=== PATIENT | female | born 2000 | race Caucasian/White ===

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

== ENCOUNTER 2022-05-16 17:02 | Emergency (ER) | payer MEDICAID, SELFPAY ==
[2022-05-16 17:05] VITALS: BP 123/91; PULSE 94; RESP 16; TEMP 36.8; O2SAT 98
--- NOTE | 2022-05-16 18:56 | W.ED.GENAD ---
Discharge Plan Disposition Patient Disposition: Home Condition: Stable Discharge Details Clinical Impression: Discharge from left nipple Primary Care Provider: Carmen Fowler ED Provider: Evelyne Rubin Home Meds and New Rx's Prescriptions: No Action Nexplanon 68 mg Implant SUBDERMAL Discharge Instructions Instructions: Nipple Discharge (ED) Additional Instructions: Some nipple discharge can be normal, or can be hormonal. Please follow-up with your primary care provider to discuss possible mammogram if they feel this is warranted. I do not see any evidence of infection at this time. test is negative. Follow up with primary care provider in 3-5 days. Return to ED sooner if any worsening or concerns. Increase oral fluids. Please take Tylenol or Ibuprofen with food every 4-6 hours as needed for pain and swelling. Referrals: Carmen Fowler, [Primary Care Provider] - Return if symptoms worsen Medical Decision Making 22-year-old female presents with report of left nipple discharge after removing some nipple piercings approximately 2 months ago. She reports that she has had the piercings for approximately 4 years. She reports that over the last 2 to 3 days the discharge changed to more liquidy and bloody and yellow. She denies any breast erythema, redness, induration or pain she denies noting any lumps or any other associated symptoms. She denies any possibility of she does have the Nexplanon implant however she does report some vaginal bleeding this month which is the first time in the last 6 months since having the Nexplanon. On further questioning she does note that her mom did have a breast lumpectomy when she was a younger child she is unsure if it was benign or malignant at that time. Will dip urine for test. Patient reports that she did have a menstrual period earlier this month has not had 1 in the last 6 months. I did discuss follow-up care and to discuss getting a mammogram with her PCP due to her mom's history of possible lumpectomy. I did discuss that sometimes nipple discharge can be hormonal I do not think that patient needs to be on antibiotics at this time there is no obvious clinical evidence for infection at this time. I did discuss this plan with her she verbalizes understanding and is in agreement with the plan. Urine is negative. Patient discharged with follow-up instructions. This text was generated using Nuance dictation system, please disregard any oddities of phrase or misspellings. HPI General Mode of arrival: ambulatory. Date/Time Provider Initiated Documentation: 05/16/22 17:14. Limitations to Documentation: no limitations. Information obtained by: patient, RN notes reviewed and old records reviewed. HPI Narrative: 22-year-old female presents to the ER with chief complaint of discharge from her left nipple which she noticed a few days ago. She reports intermittent discharge over the last couple of months after removing some nipple piercings. She describes it as white cottage cheeselike substance. However 2 days ago it began more liquidy yellow with blood-tinged. No surrounding induration no erythema no signs of infection no lumps palpated on my exam. She denies any fever chills or any other associated symptoms. She does report that she remembers her mother did have a lump removed when she was a small child she is unsure if it is cancerous or not. She goes to school in [place]. Past medical history includes obesity, she does have a Nexplanon control implant. Related Data Home Medications Medication Instructions Recorded Confirmed etonogestrel 68 mg subdermal subdermal 05/16/22 implant (Nexplanon) Allergies Allergy/AdvReac Type Severity Reaction Status Date / Time No Known Allergies Allergy Unverified 05/16/22 17:07 General Stated Complaint: Cellulitis FALGUNI: 4 Review of Systems All systems reviewed & are unremarkable except as noted in HPI and below Constitutional Constitutional: Reports system reviewed and no additional complaints, except as documented, Denies body ache(s), Denies chills, Denies fatigue, Denies fever(s) and Denies headache(s) ENT Ears, Nose, Mouth, and Throat: Reports system reviewed and no additional complaints, except as documented and Denies headache(s) Cardiovascular Cardiovascular: Denies chest pain Integumentary/Breasts Skin/Breast: Reports as per HPI, Denies breast swelling, Reports breast skin changes (Nipple discharge left breast), Denies breast pain, Denies breast mass and Denies change in breast shape Neurologic Neurologic: Denies headache(s) Endocrine Endocrine: Denies fatigue PFSH All Active Problems (Updated 05/16/22 @ 19:18 by Evelyne Rubin NP) Discharge from left nipple (Acute) Avascular necrosis of bone (Acute 09/22/12) BMI,pediatric 85% - <95% (Acute 11/09/11) Concussion (Acute 01/18/13) Body mass index (BMI) greater than 95th percentile (Acute 11/09/11) Acquired dysplasia of right hip (Acute 01/10/16) being followed by [facility] ortho. S/p surgical correction. Last visit 08/2017. Follow up in 1 year. Chronic daily headache (Acute 05/15/14) Daytime somnolence (Acute 05/15/14) Dysmenorrhea (Acute 01/13/17) Patient advised by orthopedic surgeon [facility] to not have a subdermal implant secondary to concern for infection. Mirena IUD planned. 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 Right hip pain Secondary to osteoarthritis. Patient is scheduled for right hip surgery at [facility] 01/2017 Serous otitis media chronic Surgical History Tonsillectomy and adenoidectomy 2012 Tooth extraction 4 wisdom teeth extraction Family History Other Hypertensive disorder, systemic arterial mat uncle Personal history of malignant neoplasm liver in Mgreat GF Mental disorder mat uncle with schizophrenia/depression/mild retardation Asthma mat uncle and other Brother Attention deficit hyperactivity disorder Grandfather Heart disease PGF- was 3rd heart transplant in [place] Mental disorder alcoholism Grandmother Personal history of malignant neoplasm Vyas's esophagitis Mother Hypertensive disorder, systemic arterial Mental disorder depression/anxiety/panic attacks Psoriasis with arthropathy Father Mental disorder alcoholism Other Mental disorder pat aunt with alcoholism Grandfather Mental disorder alcoholism Other Diabetes Social History (Updated 03/03/22 @ 10:26 by Arianna Duarte) Smoking/Tobacco Use Status: Current every day Tobacco Type: e-cigarettes Tobacco: How many years used: 1 Quit status: not considering quitting Smoking risk assessment performed?: Yes Alcohol Intake: current Alcohol Intake frequency: a few times a month Drug use: Never Substance use type: does not use Adopted: No Caregiver/Support person: No Foster care: No Household members: family Housing: house Number of Children: 0 Communication Needs: None Education Level: college Details: Bachelor's Degree Do you need help understanding health information?: Often current occupation: Kitchen Staff Pets and animals: Yes Pets and animals: cat(s), dog(s) and fish Sexually active: Yes Do you think of yourself as: straight/heterosexual Current gender identity: female What is your relationship status?: never How often do you talk on the phone with friends or family?: three or more times per week How often do you get together with friends or relatives?: once per week Panel score (0-1 are the most socially isolated patients): 1 What type of physical activity do you participate in: walking and running Duration: 60-90 minutes/day Frequency: 5-6 times per week Erlinda/Episcopalian: None Special erlinda needs: No Seatbelt use: always Helmet use: No Drive intox or ride w/intox bulk delivery driver: No Do you feel safe at home: Yes Do you feel safe in your relationship?: Yes Exam Const General: cooperative, healthy appearing, comfortable, well developed and well groomed Nutritional Appearance: well nourished and overweight Orientation: alert, awake and oriented x3 Neck Neck: full ROM and no lymphadenopathy Chest Chest: normal inspection of the chest, normal palpation of entire chest wall, no masses, no tenderness and No rash Breast inspection: normal inspection of the breasts and normal inspection of the axillae Breast palpation: normal palpation of the breasts and normal palpation of the axillae Other: No induration erythema or palpable mass no evidence of discharge, unable to express any discharge from the nipples at this time. Resp Effort & Inspection: normal respiratory effort and able to speak in complete sentences Auscultation: clear to auscultation bilaterally Cardio Rate: regular rate Rhythm: regular rhythm Heart Sounds: S1 normal, S2 normal, no click, no gallops and no murmurs Course Vital Signs Vital signs: Vital Signs Temperature 36.8 C 05/16/22 17:05 Pulse 94 H 05/16/22 17:05 Respiratory Rate 16 05/16/22 17:05 Blood Pressure 123/91 H 05/16/22 17:05 Pulse Oximetry 98 05/16/22 17:05 Temperature 36.8 C 05/16/22 17:05 Temperature Source Oral 05/16/22 17:05 Pulse 94 H 05/16/22 17:05 Respiratory Rate 16 05/16/22 17:05 Respiratory Effort 05/16/22 17:09 Blood Pressure 123/91 H 05/16/22 17:05 Blood Pressure Position Sitting 05/16/22 17:05 Pulse Oximetry 98 05/16/22 17:05 Oxygen Delivery Method Room Air 05/16/22 17:05 Oxygen Flow Rate 0 05/16/22 17:05 Pain Level 0 05/16/22 17:05
== END 2022-05-16 19:27 | disposition home or self-care (01) ==
PROVIDERS: Emergency Provider Registered Nurse Emergency; PCP Student in an Organized Health Care Education/Training Program
DX: N64.52 Nipple discharge (principal)
CPT/HCPCS: 81025; 99282

== ENCOUNTER 2023-02-24 15:20 | Emergency (ER) | payer SELFPAY ==
[2023-02-24 15:24] VITALS: BP 163/94; PULSE 100; RESP 18; TEMP 36.3; O2SAT 99
--- NOTE | 2023-02-24 15:58 | ED.GENADUL_ITS ---
Discharge Plan Disposition Patient Disposition: Home Discharge Details Clinical Impression: Pitted keratolysis Primary Care Provider: None,None ED Provider: Grayson Solano Home Meds and New Rx's Prescriptions: New erythromycin-benzoyl peroxide 3-5 % gel 1 applic topical BID MDD n/a 10 Days Qty: 23.3 0RF Continued Nexplanon 68 mg Implant See Rx Instructions SUBDERMAL .COMPLEX Rx Instructions: subdermally; Discharge Instructions Instructions: Erythromycin (On the skin), Athlete's Foot (ED) Additional Instructions: You were seen in the emergency department for your macular skin rash to the soles of your feet, this is possibly an antifungal infection and you should try to obtain enis-dvq-gxgzqlw antifungal creams like Lamisil or Lotrimin, look for the active ingredients of butenafine or terbinafine as these are fungicidal as we discussed. There is a possibility that this is pended around lysis and I have sent topical erythromycin to be placed on the skin twice per day for 10 days. If none of these topical treatments are responding to therapy its possible that you have mosaic plantars warts and would need to see podiatry. Please return to the emergency department for any severe increase in redness or pain to the feet with drainage of pus from the areas, any progressing numbness or extreme pain with coldness to touch of the feet. Referrals: Opal Harding DPM [[facility] STAFF PHYSICIAN] - (Possible mosaic warts) Medical Decision Making 22-year-old female has had repeated macular pitted lesions intermittently for months to the soles of her feet, she does use communal showers at college campus. She has attempted treatment with benzyl peroxide without relief and has noticed exacerbated lesions with peeling skin since being in footwear for prolonged time with abundant foot sweating. She questions whether this is pitted keratolysis. I did advise her to trial topical antifungal creams and prescribed erythromycin topical 3% ointment to apply twice per day for 10 days- there is a possibility this could be mosaic pattern warts and I did recommend her to follow-up with podiatry for failure to improve on a routine basis. Acute uncomplicated illness without systemic symptoms. Differential Diagnosis Differential Diagnosis: Mosaic Warts, Pitted Keratolysis, Superficial Fungal Infection Medical Records Medical records reviewed: Yes I reviewed the patient's medical records. HPI General Date/Time Provider Initiated Documentation: 02/24/23 15:22 . HPI Narrative: 22-year-old female presents by POV with recurrent skin problem on the soles of her feet, she equates this with possible exposures over the past year with communal showers at her college campus. She has tried topical benzoyl peroxide as she believes this is pitted keratolysis. She reports it is exacerbated by spending more time in shoes which causes her feet to sweat, it is not a painful condition. Patient otherwise healthy. Related Data Home Medications Medication Instructions Recorded Confirmed etonogestrel 68 mg subdermal See Rx Instructions subdermal 05/16/22 02/24/23 implant (Nexplanon) .COMPLEX erythromycin-benzoyl peroxide 3 1 applic topical BID pitted 02/24/23 %-5 % topical gel keratolysis 10 days #23.3 grams Previous Rx's Medication Instructions Recorded erythromycin-benzoyl peroxide 3 1 applic topical BID pitted 02/24/23 %-5 % topical gel keratolysis 10 days #23.3 grams Allergies Allergy/AdvReac Type Severity Reaction Status Date / Time No Known Allergies Allergy Unverified 02/24/23 15:28 General Stated Complaint: Recheck FALGUNI: 4 Review of Systems All systems reviewed & are unremarkable except as noted in HPI and below PFSH All Active Problems (Updated 02/24/23 @ 16:11 by PAPO Galo) Pitted keratolysis (Acute) Avascular necrosis of bone (Acute 09/22/12) BMI,pediatric 85% - <95% (Acute 11/09/11) Concussion (Acute 01/18/13) Body mass index (BMI) greater than 95th percentile (Acute 11/09/11) Acquired dysplasia of right hip (Acute 01/10/16) being followed by [facility] ortho. S/p surgical correction. Last visit 08/2017. Follow up in 1 year. Chronic daily headache (Acute 05/15/14) Daytime somnolence (Acute 05/15/14) Dysmenorrhea (Acute 01/13/17) Patient advised by orthopedic surgeon [facility] to not have a subdermal implant secondary to concern for infection. Mirena IUD planned. 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 Patient is scheduled for right hip surgery at [facility] 01/2017 Dysmenorrhea in adolescent Has decided on Mirena IUD for menstrual cycle control. Serous otitis media chronic Surgical History Tonsillectomy and adenoidectomy 2012 Tooth extraction 4 wisdom teeth extraction Family History Other Hypertensive disorder, systemic arterial mat uncle Personal history of malignant neoplasm liver in reat GF Mental disorder mat uncle with schizophrenia/depression/mild retardation Asthma mat uncle and other Brother Attention deficit hyperactivity disorder Grandfather Heart disease PGF- was 3rd heart transplant in [place] Mental disorder alcoholism Grandmother Personal history of malignant neoplasm Vyas's esophagitis Mother Hypertensive disorder, systemic arterial Mental disorder depression/anxiety/panic attacks Psoriasis with arthropathy Father Mental disorder alcoholism Other Mental disorder pat aunt with alcoholism Grandfather Mental disorder alcoholism Other Diabetes Social History (Updated 03/03/22 @ 10:26 by Arianna Duarte) Smoking/Tobacco Use Status: Current every day Tobacco Type: e-cigarettes Tobacco: How many years used: 1 Quit status: not considering quitting Smoking risk assessment performed?: Yes Alcohol Intake: current Alcohol Intake frequency: a few times a month Drug use: Never Substance use type: does not use Adopted: No Caregiver/Support person: No Foster care: No Household members: family Housing: house Number of Children: 0 Communication Needs: None Education Level: college Details: Bachelor's Degree Do you need help understanding health information?: Often current occupation: Kitchen Staff Pets and animals: Yes Pets and animals: cat(s), dog(s) and fish Sexually active: Yes Do you think of yourself as: straight/heterosexual Current gender identity: female What is your relationship status?: never How often do you talk on the phone with friends or family?: three or more times per week How often do you get together with friends or relatives?: once per week Panel score (0-1 are the most socially isolated patients): 1 What type of physical activity do you participate in: walking and running Duration: 60-90 minutes/day Frequency: 5-6 times per week Erlinda/Restorationism: None Special erlinda needs: No Seatbelt use: always Helmet use: No Drive intox or ride w/intox cdl driver: No Do you feel safe at home: Yes Do you feel safe in your relationship?: Yes Exam Const General: cooperative, healthy appearing and no acute distress HENMT Head: normocephalic and atraumatic Resp Effort & Inspection: normal respiratory effort and able to speak in complete sentences Cardio Jugular venous pressure: no JVD Rate: regular rate Pulses: radial pulses present Skin Other: Bilateral dendritic pattern and macular pitted lesions without central pigmented areas consistent with warts, there is no erythema or drainage of pus, she had recently performed a foot peeling treatment. No dorsal involvement, pedal pulses intact with brisk capillary refill Course Vital Signs Vital signs: Vital Signs Temperature 36.3 C L 02/24/23 15:24 Pulse 100 H 02/24/23 15:24 Respiratory Rate 18 02/24/23 15:24 Blood Pressure 163/94 H 02/24/23 15:24 Pulse Oximetry 99 02/24/23 15:24 Temperature 36.3 C L 02/24/23 15:24 Temperature Source Oral 02/24/23 15:24 Pulse 100 H 02/24/23 15:24 Respiratory Rate 18 02/24/23 15:24 Respiratory Effort Normal 02/24/23 15:29 Blood Pressure 163/94 H 02/24/23 15:24 Blood Pressure Position Sitting 02/24/23 15:24 Pulse Oximetry 99 02/24/23 15:24 Oxygen Delivery Method Room Air 02/24/23 15:24 Oxygen Flow Rate 0 02/24/23 15:24
[2023-02-24 16:36] VITALS: BP 146/92; PULSE 88; RESP 22; O2SAT 97
== END 2023-02-24 16:37 | disposition home or self-care (01) ==
PROVIDERS: Emergency Provider Physician Assistant
DX: L08.89 Other specified local infections of the skin and subcutaneous tissue
CPT/HCPCS: 99282; 99283

== ENCOUNTER 2023-03-09 18:07 | Emergency (ER) | payer SELFPAY ==
[2023-03-09 18:18] VITALS: BP 151/106; PULSE 94; RESP 18; TEMP 36.8; O2SAT 99
[2023-03-09 18:32] LABS: Bilirubin Negative (Negative); Blood Large (Negative); Clarity Turbid (Clear); Glucose Negative (Negative); Ketones Negative (Negative); Leukocyte Esterase Small (Negative); Nitrite Negative (Negative)
[2023-03-09 18:39] LABS: C & S Indicated? Yes; RBC >50 HPF (0-2)
--- NOTE | 2023-03-09 18:46 | W.ED.GENAD ---
Discharge Plan Disposition Patient Disposition: Home Condition: Stable Discharge Details Clinical Impression: UTI (urinary tract infection) Primary Care Provider: None,None ED Provider: Evelyne Rubin Home Meds and New Rx's Prescriptions: New cephalexin 500 mg tablet 500 mg PO BID 5 Days Qty: 10 0RF No Action Nexplanon 68 mg Implant See Rx Instructions SUBDERMAL .COMPLEX Rx Instructions: subdermally; Discharge Instructions Instructions: Urinary Tract Infection in Women (ED) Additional Instructions: Please take the antibiotic with yogurt or a probiotic. Please take the Pyridium as directed. Follow up with primary care provider in 3-5 days. Return to ED sooner if any worsening or concerns. Increase oral fluids. Please take Tylenol or Ibuprofen with food every 4-6 hours as needed for pain and swelling. Medical Decision Making 23 year old female presents to the ED with dysuria, urgency and hesitancy that began today. She reports that she recently had intercourse and she may have experienced some vaginal trauma. She also reports that she is about to start her period which could also be why she is peeing blood. She denies any abdominal pain back pain fever chills nausea vomiting diarrhea or any other associated symptoms. She does have a Nexplanon. Urinalysis shows large blood, small leukocytes greater than 50 RBCs culture pending at this time. Negative nitrites. Discussed options with patient she would like to start antibiotics right away we will give cephalexin 500 mg and Pyridium. This text was generated using [employer] dictation system, please disregard any oddities of phrase or misspellings. Lab Data Lab results reviewed: Yes I reviewed the patient's lab results. Labs: 03/09/23 18:20 Urine - Reflex from Ua Urine Culture - Pending Laboratory Tests Range/Units 03/09/23 18:20 Urine Color (Yellow) [place] Urine Clarity (Clear) Turbid Urine pH (5-8) 7.0 Ur Specific [place] (1.005-1.025) 1.020 Urine Protein (Negative) mg/dL 100 H Urine Ketones (Negative) mg/dL Negative Urine Blood (Negative) Large H Urine Nitrite (Negative) Negative Urine Bilirubin (Negative) Negative Urine Urobilinogen (Up to 0.2) mg/dL 1.0 H Ur Leukocyte Esterase (Negative) Small H Urine RBC (0-2) HPF >50 H Urine WBC Not Applicable Ur Epithelial Cells Not Applicable Urine Crystals Not Applicable Urine Bacteria Not Applicable Urine Mucus Not Applicable Ur Culture Indicated? Yes Urine Glucose (Negative) mg/dL Negative HPI General Mode of arrival: ambulatory. Date/Time Provider Initiated Documentation: 03/09/23 18:11. Limitations to Documentation: no limitations. Information obtained by: patient, RN notes reviewed and old records reviewed. HPI Narrative: 23 year old female presents to the ED with dysuria, urgency and hesitancy that began today. She reports that she recently had intercourse and she may have experienced some vaginal trauma. She also reports that she is about to start her period which could also be why she is peeing blood. She denies any abdominal pain back pain fever chills nausea vomiting diarrhea or any other associated symptoms. She does have a Nexplanon. Related Data Home Medications Medication Instructions Recorded Confirmed etonogestrel 68 mg subdermal See Rx Instructions subdermal 05/16/22 03/09/23 implant (Nexplanon) .COMPLEX cephalexin 500 mg tablet 500 mg PO BID 5 days #10 tabs 03/09/23 Previous Rx's Medication Instructions Recorded cephalexin 500 mg tablet 500 mg PO BID 5 days #10 tabs 03/09/23 Allergies Allergy/AdvReac Type Severity Reaction Status Date / Time No Known Allergies Allergy Unverified 03/09/23 18:25 General Stated Complaint: Urinary FALGUNI: 3 Review of Systems All systems reviewed & are unremarkable except as noted in HPI and below Genitourinary Genitourinary: Reports dysuria, Reports urinary hesitancy and Reports urinary urgency PFSH All Active Problems (Updated 03/09/23 @ 18:49 by Evelyne Rubin NP) UTI (urinary tract infection) (Acute) Pitted keratolysis (Acute) Avascular necrosis of bone (Acute 09/22/12) BMI,pediatric 85% - <95% (Acute 11/09/11) Concussion (Acute 01/18/13) Body mass index (BMI) greater than 95th percentile (Acute 11/09/11) Acquired dysplasia of right hip (Acute 01/10/16) being followed by [facility] ortho. S/p surgical correction. Last visit 08/2017. Follow up in 1 year. Chronic daily headache (Acute 05/15/14) Daytime somnolence (Acute 05/15/14) Dysmenorrhea (Acute 01/13/17) Patient advised by orthopedic surgeon [facility] to not have a subdermal implant secondary to concern for infection. Mirena IUD planned. 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 Patient is scheduled for right hip surgery at [facility] 01/2017 Dysmenorrhea in adolescent Has decided on Mirena IUD for menstrual cycle control. Serous otitis media chronic Surgical History Tonsillectomy and adenoidectomy 2012 Tooth extraction 4 wisdom teeth extraction Family History Other Hypertensive disorder, systemic arterial mat uncle Personal history of malignant neoplasm liver in Mgreat GF Mental disorder mat uncle with schizophrenia/depression/mild retardation Asthma mat uncle and other Brother Attention deficit hyperactivity disorder Grandfather Heart disease PGF- was 3rd heart transplant in [place] Mental disorder alcoholism Grandmother Personal history of malignant neoplasm Vyas's esophagitis Mother Hypertensive disorder, systemic arterial Mental disorder depression/anxiety/panic attacks Psoriasis with arthropathy Father Mental disorder alcoholism Other Mental disorder pat aunt with alcoholism Grandfather Mental disorder alcoholism Other Diabetes Social History Smoking/Tobacco Use Status: Current every day Tobacco Type: e-cigarettes Tobacco: How many years used: 1 Quit status: not considering quitting Smoking risk assessment performed?: Yes Alcohol Intake: current Alcohol Intake frequency: a few times a month Drug use: Never Substance use type: does not use Adopted: No Caregiver/Support person: No Foster care: No Household members: family Housing: house Number of Children: 0 Communication Needs: None Education Level: college Details: Bachelor's Degree Do you need help understanding health information?: Often current occupation: Kitchen Staff Pets and animals: Yes Pets and animals: cat(s), dog(s) and fish Sexually active: Yes Do you think of yourself as: straight/heterosexual Current gender identity: female What is your relationship status?: never How often do you talk on the phone with friends or family?: three or more times per week How often do you get together with friends or relatives?: once per week Panel score (0-1 are the most socially isolated patients): 1 What type of physical activity do you participate in: walking and running Duration: 60-90 minutes/day Frequency: 5-6 times per week Erlinda/Yarsanism: None Special erlinda needs: No Seatbelt use: always Helmet use: No Drive intox or ride w/intox courier delivery driver: No Do you feel safe at home: Yes Do you feel safe in your relationship?: Yes Exam Narrative Exam Narrative: Constitutional: Alert and oriented x3. Appears stated age. Normal body habitus. Head: Normocephalic, no trauma. Musculoskeletal: Normal gait, 5/5 strength to all four extremities. Skin: No suspicious rashes or lesions. Capillary refill less than 2 sec. Hematologic/Lymphatic: No ecchymosis, no lymphadenopathy. Course Vital Signs Vital signs: Vital Signs Temperature 36.8 C 03/09/23 18:18 Pulse 94 H 03/09/23 18:18 Respiratory Rate 18 03/09/23 18:18 Blood Pressure 151/106 H 03/09/23 18:18 Pulse Oximetry 99 03/09/23 18:18 Temperature 36.8 C 03/09/23 18:18 Temperature Source Temporal Artery Scan 03/09/23 18:18 Pulse 94 H 03/09/23 18:18 Respiratory Rate 18 03/09/23 18:18 Respiratory Effort Normal, Non-Labored 03/09/23 18:24 Blood Pressure 151/106 H 03/09/23 18:18 Blood Pressure Position Sitting 03/09/23 18:18 Pulse Oximetry 99 03/09/23 18:18 Oxygen Delivery Method Room Air 03/09/23 18:18 Oxygen Flow Rate 0 03/09/23 18:18 Lab/Test Results Lab/Test Results: 03/09/23 18:20 Urine - Reflex from Ua Urine Culture - Pending Laboratory Tests Range/Units 03/09/23 18:20 Urine Color (Yellow) [place] Urine Clarity (Clear) Turbid Urine pH (5-8) 7.0 Ur Specific [place] (1.005-1.025) 1.020 Urine Protein (Negative) mg/dL 100 H Urine Ketones (Negative) mg/dL Negative Urine Blood (Negative) Large H Urine Nitrite (Negative) Negative Urine Bilirubin (Negative) Negative Urine Urobilinogen (Up to 0.2) mg/dL 1.0 H Ur Leukocyte Esterase (Negative) Small H Urine RBC (0-2) HPF >50 H Urine WBC Not Applicable Ur Epithelial Cells Not Applicable Urine Crystals Not Applicable Urine Bacteria Not Applicable Urine Mucus Not Applicable Ur Culture Indicated? Yes Urine Glucose (Negative) mg/dL Negative POC- Test(urine) Negative PAWSS Have you Been Recently Intoxicated or Drunk Within the Last 30 days?: No Have you Ever Experienced Previous Episodes of Alcohol Withdrawal?: No Have you ever Experienced Withdrawal Seizures?: No Have you ever Experienced Delirium Tremens(DT)s?: No Have you ever undergone Alcohol Rehabilitation Treatment (i.e, inpt ot outpatient treatment programs)?: No Have you ever Experienced Blackouts?: No Have you ever Combined Alcohol with other Downers within the last 90 days?: No Have you ever Combined Alcohol with any other Substance of Abuse during the last 90 days?: No Positive Blood Alcohol level on Presentation? [PCS.BAL]: No Evidence of Increased Autonomic Activity (i.e. HR>120, tremor, sweating, agitation, nausea)?: No Result: 0
[2023-03-09] MEDS: Cephalexin 500 MG CAP PO (18:53)
[2023-03-09] MEDS: Phenazopyridine 100 MG TAB PO (18:53)
[2023-03-09] MEDS: Phenazopyridine 100 MG TAB, 2 TABS/BTL PO (18:53)
[2023-03-09] MEDS: Cephalexin 500 MG CAP, 2 CAPS/BTL PO (18:53)
[2023-03-09 18:57] VITALS: BP 156/111
== END 2023-03-09 18:59 | disposition home or self-care (01) ==
PROVIDERS: Emergency Provider Registered Nurse Emergency
DX: N39.0 Urinary tract infection, site not specified (principal); F17.290 Nicotine dependence, other tobacco product, uncomplicated
CPT/HCPCS: 87077; 99283; 81003; 81015; 87086; 87186

== ENCOUNTER → 2023-10-27 17:28 | Outpatient (CLI) | payer OTHER, SELFPAY ==
--- NOTE | 2023-10-27 17:45 | DI.RAD_ITS ---
Exam(s) XR KNEE LT 4V AP,LAT,MARY JANE,PAT EXAM: XR KNEE LT 4V AP,LAT,MARY JANE,PAT CLINICAL HISTORY: evaluate pathology. TECHNIQUE: 2D digital imaging was performed of the left knee. Three images were obtained. Merchant ,AP, lateral and PA tunnel views were obtained. COMPARISON: CR LEFT KNEE 3 VIEW COMPLETE from 03/16/2013 FINDINGS: BONES: No acute fracture is present. No bony destructive lesion is seen. JOINTS: The knee is normally aligned. No joint effusion is seen. No loose body. SOFT TISSUE: Normal. IMPRESSION: Normal radiographs of the left knee. DATA REPOSITORY: RADIATION DOSE DELIVERED:
--- NOTE | 2023-10-27 18:25 | DI.VRAD_ITS ---
PROCEDURE INFORMATION: Exam: XR Left Knee Exam date and time: 10/27/2023 5:52 PM Age: 23 years old Clinical indication: Other: Evaluate pathology TECHNIQUE: Imaging protocol: Radiologic exam of the left knee. Views: 4 or more views. COMPARISON: SOFT TISSUE EXT US LIMITED 09/15/2017 10:34 AM FINDINGS: Bones/joints: No acute fracture or subluxation. Soft tissues: Unremarkable. IMPRESSION: No acute bony pathology. Dictated and Authenticated by: Itzel East MD. Ordering:PILI Corley MD
== END ==
PROVIDERS: Visit Provider Nurse Practitioner Family
DX: M25.562 Pain in left knee (principal)
CPT/HCPCS: 73564

== ENCOUNTER → 2023-12-01 00:57 | Outpatient (CLI) | payer OTHER, SELFPAY ==
--- NOTE | 2023-12-01 07:45 | DI.MRI_ITS ---
Exam(s) MR LOWER JOINT LT WO EXAM: MR LOWER JOINT LT WO CLINICAL HISTORY: ? MCL OR MENISCUS, internal derangement lt knee, M23.92. TECHNIQUE: Multiplanar multisequence MRI was performed. COMPARISON: CR,XR XR KNEE LT 4V AP,LAT,MARY JANE,PAT from 10/27/2023 FINDINGS: BONES: There is no fracture or contusion pattern. JOINTS: A small joint effusion is present. Articular cartilage: Patellofemoral joint: Articular cartilage is unremarkable. Medial femoral tibial joint: Articular cartilage is unremarkable. Lateral femoral tibial joint: Articular cartilage is unremarkable. LIGAMENTS: Anterior Cruciate: Unremarkable. Posterior Cruciate: Unremarkable. Medial Collateral:Edema surrounding the medial collateral ligament consistent with sprain. No eviden ce of complete tear. Lateral Collateral ligament complex: Unremarkable. TENDONS: Extensor mechanism: Unremarkable. Medial retinaculum: Unremarkable. Lateral retinaculum: Unremarkable. Popliteus: Unremarkable. MENISCI: The medial meniscus is unremarkable. The lateral meniscus is unremarkable. MUSCLES: Unremarkable. SOFT TISSUES: Mild anterior edema. IMPRESSION: Medial collateral ligament sprain. No evidence of meniscal tear. DATA REPOSITORY:
== END ==
PROVIDERS: Visit Provider Student in an Organized Health Care Education/Training Program
DX: M23.92 Unspecified internal derangement of left knee (principal); S83.412A Sprain of medial collateral ligament of left knee, initial encounter
CPT/HCPCS: 73721

== ENCOUNTER 2024-10-18 11:42 | Outpatient (REF) | payer OTHER, SELFPAY ==
--- NOTE | 2024-10-18 11:15 | PAPFT_PTH ---
PATIENT: Renetta Simmons LOC: [facility] U#:[id number] AGE/SX: 24/F ROOM: RE10/18/[address]: Ny Davis NP : 2000 BED: DIS: 10/18/2024 SPEC #: [id number] RECD: 10/18/24 12:58 STATUS: DEMARIO REQ #: [id number] ANGIE: 10/18/24 11:[address]: Susan BLACK,Ny DEPT: [facility] Cytology RECD BY: Nadja Phipps ENTERED: 10/18/24 12:58 SP TYPE: PAPFT OTHR DR: Unknown,Unknown Tissues: 1 - CX/ENDOCX FOR PAP SMEARS Procedures: PAP THIN PREP/[facility] Screening Comments: [id number] (CHLAMYDIA/GC)
[2024-10-19 11:37] LABS: Chlamydia Result Negative (Negative); GC Result Negative (Negative)
== END 2024-10-18 11:43 | disposition home or self-care (01) ==
LOC: LBN 11:42
PROVIDERS: Visit Provider Nurse Practitioner Women's Health
DX: Z12.4 Encounter for screening for malignant neoplasm of cervix (principal); N76.0 Acute vaginitis
CPT/HCPCS: 87491; 87591; 88142